=== PATIENT | male | born 1975 | race African-American/Black ===

== ENCOUNTER 2019-12-06 21:02 | Emergency (ER) | payer OTHER ==
[~2019-12-06] VITALS: Ht 195.6 cm; Wt 83.9 kg
[2019-12-06 22:34] VITALS: BP 147/101
[2019-12-06 23:05] LABS: AMP/METHAMP Negative (Negative); BARBITURATES Negative (Negative); BENZODIAZEPINES Negative (Negative); COCAINE Negative (Negative); METHADONE Negative (Negative); OPIATES Negative (Negative); PCP POSITIVE (Negative)
--- NOTE | 2019-12-07 07:45 | EKG ---
[facility] [place] [address] ELECTROCARDIOGRAM REPORT Name: BRI HERNANDEZ Room #: DEP [facility]#: [id number] Admission: 12/06/19 Attend Phys: Discharge: 12/06/19 Date of : 79 Report #: [id number] THIS REPORT FOR: cc: JUANITO - Lianna family physician/PCP JUANITO - Lianna family physician/PCP Aubrey Alves MD [facility] ~ THIS REPORT FOR: //name// [facility] ED Test Date: 2019-12-06 Test Time: 22:02:08 Pat Name: BRI HERNANDEZ Department: Room: Gender: [employer] Mate: [facility] : 1975 Requested By: Gene Rehman Order Number: [id number] MD: Aubrey Alves Measurements Intervals [place] Rate: 106 P: 73 VT: 154 QRS: 60 QRSD: 87 T: 35 QT: 324 QTc: 431 Interpretive Statements Sinus tachycardia Biatrial enlargement No previous ECG available for comparison Electronically Signed On 12-07-2019 7:44:43 CDT by Aubrey Alves [email or web address] <ELECTRONICALLY SIGNED> By: Aubrey Alves MD, FAC 12/07/19 0744 01 01 Aubrey Alves MD, FACC /EPI
== END 2019-12-06 22:30 ==
LOC: ER 21:02
PROVIDERS: Emergency Medicine
DX: R00.0 Tachycardia, unspecified (principal); F17.210 Nicotine dependence, cigarettes, uncomplicated